=== PATIENT | male | born 1940 | race Caucasian/White ===

== ENCOUNTER 2016-11-24 02:47 | Day surgery (SDC) | payer MEDICARE ==
--- NOTE | 2016-11-24 13:15 | NUR ---
HERE FOR CONSULT WITH DR NORMAN. VITALS TAKEN AND MEDICATIONS REVIEWED. PROCEDURE SCHEDULED PER DR NORMAN ORDERS TO RETURN November
[2016-11-24 13:30] VITALS: BP 138/93; PULSE 63; RESP 16; O2SAT 95
[2016-11-24] MEDS ORDERED: ANTIBIOTIC PO (14:09)
[2016-11-24] MEDS ORDERED: TRIA0.2595 PO (14:09)
[2016-11-24] MEDS ORDERED: ASPI-973 PO (14:09)
[2016-11-24] MEDS ORDERED: MULT-1018 PO (14:09)
[2016-11-24] MEDS ORDERED: NAPR220C11 PO (14:09)
--- NOTE | 2016-11-24 14:55 | DRSVH ---
PROCEDURE: PHYSICIAN CONSULTATION COMPARISON: [facility] Ultrasound, US, US ARTERY LEG DPLX UNI RT, 11/14/2016, 15:28. ID & CHIEF COMPLAINT: Nonhealing right lower extremity ulcers. HISTORY OF PRESENT ILLNESS: Mr. Jesus is a pleasant 76 year old male with a roughly 2 month history of right foot/toe ulcers, which appeared to develop following right foot trauma. PAST MEDICAL HISTORY: 1. Hypertension. 2. Peripheral arterial disease. 3. COPD PAST SURGICAL HISTORY: No evidence of prior vascular procedures. FAMILY HISTORY: Noncontributory SOCIAL HISTORY: 1. History of heavy alcohol and tobacco use. Patient was counseled regarding the benefits of smoking cessation. ALLERGIES: No known drug allergies MEDICATIONS: Medication list on file (in PACS documents) and reviewed. REVIEW OF SYSTEMS: Negative for diabetes, nor neuropathy. FOCUSED PHYSICAL EXAM: Temperature: 36.1C Pulse rate: 63 beats per minute Blood pressure: 130/93 Respiratory rate: 60 respirations per minute Heart: Regular rate and rhythm Lungs: Clear to auscultation bilaterally Extremities: 2+ groin pulses bilaterally. Imaging studies: Right lower extremity arterial Doppler examination was performed and demonstrates a focal 50-99% stenosis of the right superficial femoral artery, as well as near occlusion of the proxi mal right posterior tibial artery. IMPRESSION: 1. The patient demonstrates significant right-sided outflow disease, suggesting that revascularizatio n would improve healing of his right lower extremity ulcer. The risks and benefits of arteriography, angioplasty, and stent procedure were discussed with the patient in detail. The patient agrees to pro ceed with this course of action. The patient will be scheduled to return in roughly one week for the procedure. Dictated by: Abby Barrios M.D. on 11/24/2016 at 14:48 Approved by: Abby Barrios M.D. on 11/24/2016 at 14:53
[2017-01-19] MEDS ORDERED: ASPI-973 PO (15:54)
[2017-01-19] MEDS ORDERED: DICL75TA6 PO (15:54)
== END 2016-11-24 23:59 | disposition home or self-care (01) ==
LOC: SOUO 02:47
PROVIDERS: ATTEND Radiology Diagnostic Radiology
DX: Z71.89 Other specified counseling (principal); I70.235 Atherosclerosis of native arteries of right leg with ulceration of other part of foot; L97.519 Non-pressure chronic ulcer of other part of right foot with unspecified severity; J44.9 Chronic obstructive pulmonary disease, unspecified; I10 Essential (primary) hypertension

== ENCOUNTER 2016-12-01 00:16 | Day surgery (SDC) | payer MEDICAID, MEDICARE ==
[~2016-12-01] VITALS: Ht 182.9 cm; Wt 84.0 kg
[2016-12-01] VITALS (10 sets, daily range): BP systolic 136–170; BP diastolic 83–95; PULSE 49–59; RESP 11–15; O2SAT 94
[~2016-12-01 00:16] MED LIST: ANTIBIOTIC PO; ASPI-973 PO; MULT-1018 PO; NAPR220C11 PO; TRIA0.2595 PO
[2016-12-01] MEDS ORDERED: Heparin 5,000 Units/500 mL NS Premix IV ONE ×2 (07:57→10:23)
[2016-12-01] MEDS ORDERED: Heparin 1,000 Unit/mL 10 mL Inj ONE (07:57)
[2016-12-01 08:26] LABS: BASOPHILS % (AUTO) 0.3 % (0-3); EOSINOPHILS % (AUTO) 4.1 % (0-5); MONOCYTES % (AUTO) 11.1 % (4-12); Mean Corpuscular Hemoglobin 29.7 pg (27.0-35.0); Mean Corpuscular Volume 89.1 fL (81-100); NEUTROPHILS % (AUTO) 57.6 % (40-74); Platelet Count 191 bil/L (150-400)
[2016-12-01] MEDS ORDERED: AMOX875T2 PO (08:53)
[2016-12-01] MEDS ORDERED: 0.9% Sodium Chloride 1,000 ML IV ONE (09:15)
[2016-12-01] MEDS ORDERED: fentaNYL-PF 50 mCg/mL 2 mL Inj ONE ×2 (09:22→10:01)
--- NOTE | 2016-12-01 11:27 | DRSVH ---
PROCEDURE: 1. Abdominal aortogram. 2. Selective right lower extremity runoff evaluation. 3. Conscious sedation x90 minutes. 4. Left groin closure device. INDICATIONS: Nonhealing right lower extremity ulcers. COMPARISON: [facility] Ultrasound, US, US ARTERY LEG DPLX UNI RT, 11/14/2016, 15:28. [facility], XA, PHYSICIAN CONSULTATION, 11/24/2016, 13:08. TECHNIQUE: Informed, written consent from the patient was obtained prior to the procedure. Patient wa s brought to the angiography suite, and conscious sedation was administered intravenously by residential staff, while continuous cardiorespiratory monitoring was performed. Maximal sterile barrier t echnique, hand hygiene, skin preparation, and sterile ultrasound technique (if ultrasound was utilize d) was followed. A mask, sterile gown, sterile gloves, a large sterile sheet, hand hygiene, and 2% ch lorhexidine or iodine was utilized for skin antisepsis. The bilateral groins were prepped and draped sterilely, and the skin and subcutaneous tissues overlying the left common femoral artery were infuse d with lidocaine. The left common femoral artery was accessed retrograde with a micropuncture set. A 4 Uruguayan sheath was advanced. 4 [place]ayan pigtail catheter was advanced into the perirenal abdominal aor ta, and was injected for AP aortography. Pigtail catheter was then withdrawn into the distal abdomina l aorta, and injected for bilateral oblique pelvic arteriography. Multiple catheters were used in an attempt to select the right common iliac artery, which was eventually successfully performed with a 4 [place]ayan nontapered angled catheter and Glidewire. A 4 [place] catheter was advanced into the right com mon femoral artery and injected for selective right lower extremity runoff evaluation. Intravenous he apple was administered. An exchange length advantage wire was advanced into the above-knee popliteal artery. A 6 [place]ayan Ansell sheath was advanced, through which a conventional 40 mm long balloon was ad vanced into the proximal/mid superficial femoral artery, and expanded to 6.2 mm diameter. Repeat minerva riography was performed via the Ansell sheath. Subsequently, a 6 mm diameter by 40 mm long paclitaxel -ballooning balloon was advanced into the mid/proximal superficial femoral artery and expanded for 90 seconds. Repeat arteriography was performed. The balloon and sheath were removed and the left common femoral artery was closed with a Starclose device. FLUOROSCOPY TIME: 21.4 minutes FINDINGS: Single right renal artery is present, which is patent. There is a high-grade focal web lik e stenosis within the left proximal renal artery. There are 2 accessory left renal arteries present. An abdominal aortic aneurysm is present, with an inner luminal diameter of roughly 38 mm. Left: The common, internal, and external iliac arteries are tortuous and patent. Common femoral artery is p atent. Profundofemoral artery is patent. Superficial femoral artery is severely stenotic proximally. Right: The common, and external iliac arteries are patent. Internal iliac artery demonstrates a high-grade o rigin stenosis. Common femoral artery is mildly diffusely stenotic. Superficial femoral artery demons trates a high-grade focal stenosis within its mid/proximal aspect, resolved following angioplasty. Mi ld diffuse stenosis within the remainder of the superficial femoral artery. Above and below knee popl iteal arteries are mildly diffusely stenotic. The anterior tibial artery demonstrates mild diffuse st enosis proximally. Tibioperoneal trunk patent. Peroneal and posterior tibial arteries are occluded. IMPRESSION: 1. Abdominal aortic aneurysm. Initial assessment with ultrasound examination is recommended to ascert ain the outer diameter. 2. No significant inflow stenosis. 3. High-grade right proximal/mid superficial femoral artery, resolved following paclitaxel-eluting an gioplasty. 4. The patient will be placed on Plavix for 6 months, followed by ASA 325 mg p.o. q.d. 5. Followup outpatient visit and Doppler ultrasound in one month will be scheduled Dictated by: Abby Barrios M.D. on 12/01/2016 at 11:16 Approved by: Abby Barrios M.D. on 12/01/2016 at 11:26
[2016-12-01] MEDS ORDERED: CLOP75TA3 PO (11:28)
--- NOTE | 2016-12-01 14:39 | NUR ---
Discharge Pt discharged to home with daughter after stable recovery post peripheral angioplasty. Pt and daughter stated verbal understanding of discharge instructions regarding changes to medications, signs of worsening condition and follow up appointments. Pt and daughter left with personal belongings, discharge paperwork, IV dc'd intact at approximately 1430.
[2017-01-19] MEDS ORDERED: DICL75TA6 PO (15:54)
[2017-01-19] MEDS ORDERED: ASPI-973 PO (15:54)
== END 2016-12-01 23:59 | disposition home or self-care (01) ==
LOC: SOUO 00:16
PROVIDERS: ATTEND Radiology Diagnostic Radiology
DX: I70.235 Atherosclerosis of native arteries of right leg with ulceration of other part of foot (principal); L97.519 Non-pressure chronic ulcer of other part of right foot with unspecified severity; I70.234 Atherosclerosis of native arteries of right leg with ulceration of heel and midfoot; L97.419 Non-pressure chronic ulcer of right heel and midfoot with unspecified severity; I71.4 Abdominal aortic aneurysm, without rupture; Q27.2 Other congenital malformations of renal artery
CPT/HCPCS: 36415; 37224; 75625; 75716; 80048; 85025; 85610; 99152; 99153; C1725; C1729; C1760; C1769; C2623; J1644; J2250; J3010; J7030; Q9967

== ENCOUNTER 2016-12-31 01:54 | Day surgery (SDC) | payer MEDICAID, MEDICARE ==
[~2016-12-31 01:54] MED LIST changes: +AMOX875T2 PO; -ANTIBIOTIC PO; -ASPI-973 PO; +CLOP75TA3 PO
[2016-12-31] MEDS ORDERED: ACET325C PO (10:52)
--- NOTE | 2016-12-31 11:23 | DRSVH ---
PROCEDURE: US DUPLEX DOPPLER UNILATERAL LEG ARTERIES, RIGHT INDICATIONS: STAUS POST ANGIOPLASTY TECHNIQUE: Color and pulse Doppler interrogation was performed of the right lower extremity arterial system, wit h image documentation. COMPARISON: [facility] Ultrasound, US, US ARTERY LEG DPLX UNI RT, 11/14/2016, 15:28. FINDINGS: Vascular Ultrasound Procedure Report Findings(Artery of Lower Extremity)(Right) Common Femoral Artery(Distal) Velocity: 136.70 cm/s, 148.70 cm/s Profunda Femoris Artery(Proximal) Velocity: 242.90 cm/s, 78.10 cm/s Superficial Femoral Artery(Proximal) Velocity: 51.80 cm/s, 50.90 cm/s Superficial Femoral Artery(Mid-longitudinal) Velocity: 61.50 cm/s Superficial Femoral Artery(Distal) Velocity: 72.20 cm/s, 497.40 cm/s Popliteal Artery(Mid-longitudinal) Velocity: 51 cm/s Posterior Tibial Artery(Distal) Velocity: Occluded. Dorsalis Pedis Artery(Distal) Velocity: 48.40 cm/s Greyscale findings: Mild scattered plaque and focal soft plaque visualized involving the distal super ficial femoral artery. IMPRESSION: 1. Focal 50-99% stenosis involving the distal right superficial femoral artery where there is focal soft plaque noted. 2. Occlusion of the right posterior tibial artery. Dictated by: Clifford Donald [facility] Interpreted: Dafne Isaac MD on 12/31/2016 at 11:18 Transcribed by: LORAINE on 12/31/2016 at 11:22 Approved by: Dafne Isaac MD, PhD on 12/31/2016 at 12:06
--- NOTE | 2016-12-31 11:27 | DRSVH ---
PROCEDURE: RADIOLOGIST CONSULT FOLLOW UP COMPARISON: [facility] Ultrasound, US, US ARTERY LEG DPLX UNI RT, 11/14/2016, 15:28. [facility], US, US ARTERY LEG DPLX UNI RT, 12/31/2016, 9:58. [facility], XA, AN ADAMA,EXTREM BILATERAL (PNL), 12/01/2016, 9:32. MEDICATIONS: Medication list on file (in PACS documents) and reviewed. Mr. Jesus underwent right proximal superficial femoral artery angioplasty on 12.01.16. He reports linda t he has experienced significant improvement in right lower extremity symptomatology. IMAGING STUDIES: Right lower extremity arterial Doppler examination today demonstrates no residual st enosis within the proximal right superficial femoral artery. However, there is a new greater than 50 % stenosis within the distal right superficial femoral artery, which was not seen on the 11.14.16 Dopp ler examination. IMPRESSION: 1. Good result of right proximal superficial femoral artery angioplasty. 2. New right distal superficial femoral artery stenosis. I have discussed the risks and benefits of a ngiography and angioplasty with the patient, who agrees to proceed with angioplasty of this lesion. T his will be scheduled within the next 2-3 weeks. Dictated by: Abby Barrios M.D. on 12/31/2016 at 11:21 Approved by: Abby Barrios M.D. on 12/31/2016 at 11:25
[2017-01-19] MEDS ORDERED: ASPI-973 PO (15:54)
[2017-01-19] MEDS ORDERED: DICL75TA6 PO (15:54)
== END 2016-12-31 23:59 | disposition home or self-care (01) ==
LOC: SOUO 01:54
PROVIDERS: ATTEND Radiology Diagnostic Radiology
DX: Z09 Encounter for follow-up examination after completed treatment for conditions other than malignant neoplasm (principal); Z98.62 Peripheral vascular angioplasty status; I70.201 Unspecified atherosclerosis of native arteries of extremities, right leg
CPT/HCPCS: 93926; G0463

== ENCOUNTER 2017-01-20 01:02 | Day surgery (SDC) | payer MEDICARE ==
[2017-01-20] VITALS (13 sets, daily range): BP systolic 119–174; BP diastolic 66–98; PULSE 47–56; RESP 10–17; O2SAT 94–100
[~2017-01-20] VITALS: Ht 182.9 cm; Wt 84.0 kg
[~2017-01-20 01:02] MED LIST changes: +ACET325C PO; +ASPI-973 PO; +DICL75TA6 PO; -NAPR220C11 PO
[2017-01-20 09:10] LABS: BASOPHILS % (AUTO) 0.2 % (0-3); EOSINOPHILS % (AUTO) 4.4 % (0-5); MONOCYTES % (AUTO) 8.6 % (4-12); Mean Corpuscular Hemoglobin 29.8 pg (27.0-35.0); Mean Corpuscular Volume 87.8 fL (81-100); NEUTROPHILS % (AUTO) 64.5 % (40-74); Platelet Count 155 bil/L (150-400)
[2017-01-20 09:31] LABS: INR 0.95 ratio
--- NOTE | 2017-01-20 09:32 | NUR ---
0900 admit note: Patient ambulates into department using cane, with daughter. His questions are answered. IV's X 2 started and labs drawn. He is prepped for arteriogram.
[2017-01-20] MEDS ORDERED: Heparin 10,000 Unit/1,000 mL NS Premix IV ONE (10:25)
[2017-01-20] MEDS ORDERED: fentaNYL-PF 50 mCg/mL 2 mL Inj ONE (10:25)
[2017-01-20] MEDS ORDERED: Heparin 1,000 Unit/mL 10 mL Inj ONE (11:05)
[2017-01-20] MEDS ORDERED: Lidocaine 1%-Epi 1:100,000 20 mL Inj ONE (11:51)
[2017-01-20] MEDS ORDERED: Protamine Sulfate 10 mg/mL 5 mL Inj ONE (11:51)
--- NOTE | 2017-01-20 12:15 | NUR ---
POST PROCEDURE NOTE RETURNED FROM ADMISSION LIAISON. SEE FLOW SHEET
--- NOTE | 2017-01-20 13:10 | DRSVH ---
PROCEDURE: 1. Selective right lower extremity arteriogram. 2. Angioplasty of right distal superficial femoral artery. 3. Drug-eluting angioplasty of right distal superficial femoral artery. 4. Right groin closure device. 5. Conscious sedation x63 minutes. INDICATIONS: Peripheral vascular disease. COMPARISON: [facility], US, US ARTERY LEG DPLX UNI RT, 12/31/2016, 9:58. [facility] jared, CR, RADIOLOGIST CONSULT FOLLOW UP, 12/31/2016, 11:15. [facility], XA, ANGIO,EXTR EM BILATERAL (PNL), 12/01/2016, 9:32. TECHNIQUE: Informed, written consent from the patient was obtained prior to the procedure. Patient wa s brought to the angiography suite, and conscious sedation was administered intravenously by prison staff, while continuous cardiorespiratory monitoring was performed. Maximal sterile barrier t echnique, hand hygiene, skin preparation, and sterile ultrasound technique (if ultrasound was utilize d) was followed. A mask, sterile gown, sterile gloves, a large sterile sheet, hand hygiene, and 2% ch lorhexidine or iodine was utilized for skin antisepsis. The right groin was prepped and draped steril drew, and the skin and subcutaneous tissues overlying the right common femoral artery were infused wit h lidocaine. The right common femoral artery was accessed antegrade with a micropuncture set. Contras t was injected for selective right lower extremity arteriography. Intravenous heparin was administere d. A Glidewire was advanced with the Kumpe catheter into the above-knee popliteal artery, and was exc hanged for an Amplatz wire. A 6 Ugandan sheath was advanced. A conventional angioplasty balloon was ex panded within the distal right superficial femoral artery, followed by expansion of a drug-eluting ba llooned to 6 mm diameter. Repeat arteriography was performed. The right common femoral artery was arturo sed with a Starclose device. The patient's oral Plavix therapy was continued following the procedure. FLUOROSCOPY TIME: 7.6 minutes FINDINGS: Common femoral artery is patent. Profunda femoris patent. Mild diffuse superficial femoral artery stenosis is present. There is a new high grade stenosis involving the distal superficial femo ral artery, resolved following final angioplasty. Above and below-knee popliteal artery is mildly dif fusely stenotic. Mild diffuse stenosis involves the proximal anterior tibial artery, which is otherwi se patent. Tibial peroneal trunk is patent. Peroneal and posterior tibial arteries are not well seen. IMPRESSION: 1. Status post conventional and drug-eluting angioplasty of the right distal superficial femoral minerva ry, with no residual stenosis. Oral Plavix therapy will be continued following the procedure. One mon followup ultrasound and outpatient visit will be scheduled for the patient. Dictated by: Abby Barrios M.D. on 01/20/2017 at 13:04 Approved by: Abby Barrios M.D. on 01/20/2017 at 13:08
--- NOTE | 2017-01-20 15:45 | NUR ---
DISCHARGE NOTE UP IN ROOM. NO CHANGE TO GROIN SITE. INSTRUCTIONS GIVEN. HOME WITH DAUGHTER
== END 2017-01-20 23:59 | disposition home or self-care (01) ==
LOC: SOUO 01:02
PROVIDERS: ATTEND Radiology Diagnostic Radiology
DX: I70.201 Unspecified atherosclerosis of native arteries of extremities, right leg (principal)
CPT/HCPCS: 36415; 37224; 75710; 80048; 85025; 85610; 99152; 99153; C1725; C1760; C1769; C2623; J1644; J2250; J2720; J3010; Q9967